=== PATIENT | male | born 1975 ===

== ENCOUNTER 2020-03-09 18:15 | Emergency (ER) | payer SELFPAY ==
[~2020-03-09] VITALS: Ht 172.7 cm; Wt 70.5 kg
[2020-03-09 18:33] VITALS: BP 134/83; Ht 172.7 cm; Wt 70.5 kg
[2020-03-09] MEDS ORDERED: DICLOFENAC SODI50 MG PO (19:53)
== END 2020-03-09 20:06 | disposition home or self-care (01) ==
LOC: D.ER 18:15
DX: S70.01XA Contusion of right hip, initial encounter (principal); M19.90 Unspecified osteoarthritis, unspecified site; W01.0XXA Fall on same level from slipping, tripping and stumbling without subsequent striking against object, initial encounter; Y93.9 Activity, unspecified; Y92.9 Unspecified place or not applicable